=== PATIENT | female | born 1935 | race Caucasian/White ===

== ENCOUNTER 2018-02-22 11:59 | Emergency (ER) | END 2018-02-22 14:47 | disposition home or self-care (01) ==

== ENCOUNTER 2018-12-02 19:14 | Emergency (ER) | payer MEDICARE, OTHER ==
[~2018-12-02] VITALS: Ht 157.5 cm; Wt 85.0 kg
[2018-12-02 19:17] VITALS: Ht 157.5 cm; Wt 85.0 kg
--- NOTE | 2018-12-02 19:31 | ERD ---
ER Documentation Chief Complaint Chief Complaint DIZZINESS HPI The patient is a 82-year-old female, presenting to the ER because of i ntermittent dizziness around 10 AM this morning, had similar symptoms previously. According to the son, she has chronic dizziness. Denies any fever, chills, neck pain, chest pain, dyspnea, abdominal pain, vomiting, dysuria, diarrhea. She complains of chronic bilateral leg numbness, denies any trauma. She does not smoke nor drink Past medical history: Hypertension, anxiety, depression, hypothyroidism Surgical history: Cholecystectomy ROS All systems reviewed and are negative except as per history of present illness. Allergies Allergies: Coded Allergies: No Known Allergy (Unverified , 02/22/18) PMhx/Soc History of Surgery: No Anesthesia Reaction: No Hx Neurological Disorder: No Hx Respiratory Disorders: No Hx Cardiac Disorders: Yes (HTN, HIGH CHOLESTEROL) Hx Psychiatric Problems: Yes (ANXIETY, DEPRESSION) Hx Miscellaneous Medical Probl: Yes (HYPOTHYROIDISM) Hx Alcohol Use: No Hx Substance Use: No Hx Tobacco Use: No Physical Exam Vitals Vital Signs Date Temp Pulse Resp B/P (MAP) Pulse Ox O2 O2 Flow FiO2 Time Delivery Rate 12/02/18 98.2 60 20 139/62 98 Room Air 21:55 (87) 12/02/18 60 18 153/73 97 Room Air 21:00 (99) 12/02/18 62 17 168/71 99 Room Air 20:00 (103) 12/02/18 83 14 193/72 99 Room Air 19:25 (112) 12/02/18 98.3 75 20 229/92 97 19:17 (137) Physical Exam Const: No acute distress. Head: Atraumatic. Eyes: Normal Conjunctiva. ENT: Normal External Ears, Nose and Mouth. Neck: Full range of motion. No meningismus. Resp: Clear to auscultation bilaterally. Cardio: Regular rate and rhythm. Abd: Soft, non distended, normal bowel sounds, non tender. Skin: No petechiae or rashes. Back: No midline or flank tenderness. Ext: No cyanosis, or edema. Neur: Awake and alert. No focal deficit Psych: Normal Mood and Affect. Result Diagram: 12/02/18192612/02/181926 Results 24 hrs Laboratory Tests Test 12/02/18 19:27 White Blood Count 13.3 10^3/ul Red Blood Count 4.25 10^6/ul Hemoglobin 13.0 g/dl Hematocrit 37.2 % Mean Corpuscular Volume 87.5 fl Mean Corpuscular Hemoglobin 30.6 pg Mean Corpuscular Hemoglobin Concent 34.9 g/dl Red Cell Distribution Width 13.6 % Platelet Count 251 10^3/UL Mean Platelet Volume 11.3 fl Immature Granulocytes % 0.700 % Neutrophils % 56.1 % Lymphocytes % 36.6 % Monocytes % 5.3 % Eosinophils % 0.6 % Basophils % 0.7 % Nucleated Red Blood Cells % 0.0 /100WBC Immature Granulocytes # 0.090 10^3/ul Neutrophils # 7.5 10^3/ul Lymphocytes # 4.9 10^3/ul Monocytes # 0.7 10^3/ul Eosinophils # 0.1 10^3/ul Basophils # 0.1 10^3/ul Nucleated Red Blood Cells # 0.0 10^3/ul Sodium Level 126 mmol/L Potassium Level 4.0 mmol/L Chloride Level 89 mmol/L Carbon Dioxide Level 26 mmol/L Anion Gap 11 Blood Urea Nitrogen 22 mg/dl Creatinine 0.81 mg/dl Est Glomerular Filtrat Rate mL/min mL/min Glucose Level 115 mg/dl Calcium Level 9.3 mg/dl Total Bilirubin 1.0 mg/dl Direct Bilirubin 0.00 mg/dl Indirect Bilirubin 1.0 mg/dl Aspartate Amino Transf (AST/SGOT) 23 IU/L Alanine Aminotransferase (ALT/SGPT) 33 IU/L Alkaline Phosphatase 79 IU/L Troponin I < 0.012 ng/ml B-Type Natriuretic Peptide 120 PG/ML Total Protein 7.8 g/dl Albumin 4.4 g/dl Globulin 3.40 g/dl Albumin/Globulin Ratio 1.29 Procedures/[place] [id number] Radiology Main Line: [phone] DIAGNOSTIC IMAGING REPORT Patient: DANIEL MARKS : 1935 Age: 82 Sex: F MR #: [id number] DOS: 12/02/181948 Ordering MD: CRISTIANA LUNDBERG MD Location: E/R Room/Bed: PROCEDURE: CT Brain without contrast. CLINICAL INDICATION: Headache. TECHNIQUE: A CT of the brain without contrast was performed utilizing axial sections from the skull base through the vertex. One or more the following does reduction techniques were utilized: Automated exposure control, adjustment of the mA/ or kV according to patient's size, or use of iterative reconstruction technique. Total exam CTDIvol is 39 MGy and DLP is 634 mGy-cm. DICOM images are available. COMPARISON: None available. FINDINGS: The ventricles and sulci are mildly prominent indicative of volume loss. There is no intracranial hemorrhage, mass effect or midline shift. No abnormal intra- axial or extra-axial fluid collections are seen. The cadet/white matter differentiation is well preserved. There are mild to moderate scattered foci of hypoattenuation in the periventricular, deep, and subcortical white matter, which are nonspecific in etiology but likely reflect chronic small vessel ischemic changes. There are mild to moderate intracranial vascular calcifications consistent with atherosc lerosis. The visualized paranasal sinuses are essentially clear. IMPRESSION: 1. No acute intracranial hemorrhage, transcortical infarction or mass effect. 2. Mild to moderate intracranial atherosclerosis and chronic small vessel ischemic changes. 3. Mild generalized cerebral volume loss. RPTAT: HH .Tali Thompson MD, MD Date Time Electronically viewed and signed by .Tali Thompson MD, MD on 12/02/2018 20:42 .N/ CC: CRISTIANA LUNDBERG MD [id number] [place] [id number] Radiology Main Line: [phone] DIAGNOSTIC IMAGING REPORT Patient: DANIEL MARKS : 1935 Age: 82 Sex: F MR #: [id number] DOS: 12/02/181919 Ordering MD: CRISTIANA LUNDBERG MD Location: E/R Room/Bed: PROCEDURE: XR Chest 1 View. CLINICAL INDICATION: Chest pain. TECHNIQUE: Single view of the chest was obtained. COMPARISON: CHEST 02/22/2018 FINDINGS: Support lines and tubes: None. Mediastinum: Heart size within normal limits. Calcified atherosclerosis in the aorta. Lungs: Elevated right hemidiaphragm. Hyperexpanded lungs. Atelectasis versus minimal infiltrates in the retrocardiac left lower lobe. Diffuse interstitial prominence in both lungs. Scattered atelectasis in both lungs. No pneumothorax. Osseous structures: Intact. Osteopenia. Degenerative changes in the shoulders. Other: None. IMPRESSION: Calcified atherosclerosis in the aorta. Atelectasis versus minimal infiltrates in the retrocardiac left lower lobe. Scattered atelectasis in the remainder of the lungs. Hyperexpanded lungs with chronic mild interstitial prominence in both lungs. Findings could reflect COPD. Elevated right hemidiaphragm. RPTAT: AA .Julio Cesar Luke MD, Date Time Electronically viewed and signed by .Julio Cesar Luke MD, on 12/02/2018 20:16 .P/ CC: CRISTIANA LUNDBERG MD [id number] EKG: Read by emergency physician Rate/Rhythm: Normal Sinus Rhythm 72 beats/min QRS, ST, T-waves: No ST elevation, no T inversion, inferior Q's Impression: Abnormal EKG MEDICAL MAKING DECISION: The patient is a 82-year-old female, presenting with acute dizziness of unclear etiology, acute hyponatremia. She remains stable emergency department, blood pressure improved without any treatment The differential diagnoses considered include but are not limited to central causes such as cerebellar infarct, cerebellar hemorrhage, cerebellar tumor, acoustic neuroma, peripheral causes such as benign positional vertigo, labyrinthitis, medication, Meniere's disease. Departure Diagnosis: Primary Impression: Dizziness Additional Impression: Hyponatremia Condition: Stable Comments I recommended her to be admitted for further evaluation, however she declined The patient is clinically sober, free of distracting injury, appears to have intact reason, insight, and judgment. In my view, the patient can make decisions The patient signed out AGAINST MEDICAL ADVICE. Risks, benefits, alternatives were explained to the patient. Risks include but not limited to and permanent disability Disclaimer: Inadvertent spelling and grammatical errors are likely due to EHR/dictation software use and do not reflect on the overall quality of patient care. Also, please note that the electronic time recorded on this note does not necessarily reflect the actual time of the patient encounter. CRISTIANA LUNDBERG MD Dec 02, 2018 19:31
[2018-12-02 21:55] VITALS: BP 139/62; PULSE 60; RESP 20
== END 2018-12-02 21:55 | disposition home or self-care (01) ==
LOC: E/R 19:14
DX: I10 Essential (primary) hypertension (principal); R40.2142 Coma scale, eyes open, spontaneous, at arrival to emergency department; R40.2362 Coma scale, best motor response, obeys commands, at arrival to emergency department; R40.2252 Coma scale, best verbal response, oriented, at arrival to emergency department; E03.9 Hypothyroidism, unspecified
CPT/HCPCS: 36415; 70450; 71045; 80053; 83880; 84484; 85025; 93005